=== PATIENT | female | born 1995 | race Caucasian/White ===

== ENCOUNTER 2019-01-21 00:35 | Observation (INO) | payer BC ==
[~2019-01-21] VITALS: Ht 162.6 cm; Wt 86.2 kg
[2019-01-21 00:50] VITALS: BP 125/72
[2019-01-21] MEDS ORDERED: PNV91TAB10 PO (04:22)
--- NOTE | 2019-01-21 06:39 | NUR ---
PATIENT HAS BEEN SCREENED AND CATEGORIZED LOW NUTRITION RISK. PATIENT WILL BE SEEN WITHIN 7 DAYS OF ADMISSION. 01/24/19 SERAFIN LUCAS MS, RDN
== END 2019-01-21 04:35 | disposition home or self-care (01) ==
LOC: MLD 00:35
PROVIDERS: ADMIT Obstetrics & Gynecology; ATTEND Obstetrics & Gynecology
DX: O26.893 Other specified pregnancy related conditions, third trimester (principal); R10.13 Epigastric pain; Z3A.33 33 weeks gestation of pregnancy
CPT/HCPCS: 81000; G0378